=== PATIENT | female | born 1985 | race Caucasian/White ===

== ENCOUNTER 2017-11-14 08:47 | Emergency (ER) | payer OTHER ==
[2017-11-14] MEDS: ALBUTEROL 0.083% (NEB) 2.5 MG/3 ML AMP HHN (10:05)
[2017-11-14] MEDS: IPRATROPIUM (NEB) 0.5 MG/2.5 ML AMP HHN (10:05)
== END 2017-11-14 11:45 | disposition home or self-care (01) ==
LOC: FTE 08:47
DX: J20.9 Acute bronchitis, unspecified (principal); J45.901 Unspecified asthma with (acute) exacerbation
CPT/HCPCS: 71046; 94664; 99283-25

== ENCOUNTER 2018-01-06 11:45 | Emergency (ER) | payer OTHER | END 2018-01-06 14:35 | disposition home or self-care (01) | LOC: FTE 11:45 | DX: S62.655A Nondisplaced fracture of middle phalanx of left ring finger, initial encounter for closed fracture (principal); J45.909 Unspecified asthma, uncomplicated; W01.0XXA Fall on same level from slipping, tripping and stumbling without subsequent striking against object, initial encounter; Y92.9 Unspecified place or not applicable | CPT/HCPCS: 29130; 73140; 99283-25 ==

== ENCOUNTER 2018-01-10 08:12 | Inpatient (IN) | payer OTHER ==
[2018-01-10] MEDS: HYDROmorphONE 1 MG/5 ML IV SYRINGE IV (08:55)
[2018-01-10] MEDS: ONDANSETRON 4 MG INJ IV (08:55)
[2018-01-10] MEDS: LACTATED RINGER'S 1,000 ML IV (09:05)
[2018-01-10 09:12] LABS: ADD MAN DIFF? NO
[2018-01-10 09:14] LABS: ABNORMAL IP MESSAGE 1; BASOPHIL # 0.1 10^3/ul (0.0-0.1); BASOPHILS % 0.7 % (0.0-2.0); EOSINOPHILS % 14.3 % (0.0-7.0); HEMOGLOBIN 13.4 g/dl (12.0-16.0); LYMPHOCYTES # 2.8 10^3/ul (0.8-2.9); LYMPHOCYTES % 13.2 % (15.0-51.0); MEAN CORPUSCULAR HEMOGLOBIN 28.7 pg (29.0-33.0); MEAN CORPUSCULAR HGB CONC 32.7 g/dl (32.0-37.0); MEAN CORPUSCULAR VOLUME 87.8 fl (82.0-101.0); MONOCYTE # 1.4 10^3/ul (0.3-0.9); MONOCYTES % 6.6 % (0.0-11.0); NEUTROPHIL # 13.8 10^3/ul (1.6-7.5); NEUTROPHILS % 64.9 % (39.0-77.0); PLATELET COUNT 428 10^3/UL (140-415); RED BLOOD COUNT 4.67 10^6/ul (4.20-5.40); RED CELL DISTRIBUTION WIDTH 13.1 % (11.5-14.5)
[2018-01-10 09:14] LABS: WHITE BLOOD COUNT 21.2 10^3/ul (4.8-10.8)
[2018-01-10 09:15] LABS: ADD UMIC NO; UR ASCORBIC ACID NEGATIVE (NEGATIVE); UR BILIRUBIN (Dip) NEGATIVE (NEGATIVE); UR BLOOD (Dip) NEGATIVE (NEGATIVE); UR CLARITY CLEAR (CLEAR); UR COLOR YELLOW (YELLOW); UR GLUCOSE (Dip) NEGATIVE (NEGATIVE); UR KETONES (Dip) NEGATIVE (NEGATIVE); UR LEUKOCYTE ESTERASE (Dip) NEGATIVE Leu/ul (NEGATIVE); UR NITRITE (Dip) NEGATIVE (NEGATIVE); UR SPECIFIC GRAVITY (Dip) 1.013 (1.003-1.030); UR TOTAL PROTEIN (Dip) NEGATIVE (NEGATIVE); UR UROBILINOGEN (Dip) NEGATIVE (NEGATIVE)
[2018-01-10 09:18] LABS: POSITIVE DIFF @See below
[2018-01-10 09:35] LABS: ALANINE AMINOTRANSFERASE 29 IU/L (13-69); ALBUMIN 4.7 g/dl (3.3-4.9); ALBUMIN/GLOBULIN RATIO 1.34; ALKALINE PHOSPHATASE 86 IU/L (42-121); ANION GAP 17 (8-16); ASPARTATE AMINO TRANSFERASE 28 IU/L (15-46); BILIRUBIN,INDIRECT 0.3 mg/dl (0-1.1); BILIRUBIN,TOTAL 0.3 mg/dl (0.2-1.3); BLOOD UREA NITROGEN 10 mg/dl (7-20); CALCIUM 10.3 mg/dl (8.4-10.2); CARBON DIOXIDE 27 mmol/L (21-31); CHLORIDE 103 mmol/L (97-110); CREATININE 0.69 mg/dl (0.44-1.00); GLUCOSE 125 mg/dl (70-220); LIPASE 59 U/L (23-300); SODIUM 143 mmol/L (135-144); TOTAL PROTEIN 8.2 g/dl (6.1-8.1)
[2018-01-10 09:41] LABS: LACTIC ACID 2.5 mmol/L (0.5-2.0)
[2018-01-10] MEDS: IOHEXOL 300MG/ML 150 ML BTL ×2 (10:02→11:43)
[2018-01-10] MEDS: SOD CHLORIDE 0.9% 100 ML ×2 (10:02→12:50)
[2018-01-10] MEDS: PIPER-TAZO 3.375 GM IV (PMX) 100 ML IVPB ×3 (10:15→17:45)
[2018-01-10] MEDS: SOD CHLORIDE 0.9% 1,000 ML IV ×3 (10:15→19:23)
[2018-01-10] MEDS ORDERED: NACL 0.9% 3 ML SYG IV (11:30)
[2018-01-10] MEDS ORDERED: ACETAMINOPHEN 650 MG SUPP PR (11:30)
[2018-01-10] MEDS ORDERED: VANCOMYCIN IV PER PHARMACY XX (11:30)
[2018-01-10] MEDS ORDERED: ACETAMINOPHEN 325 MG TAB PO (11:30)
[2018-01-10] MEDS ORDERED: ONDANSETRON 4 MG INJ IV (11:30)
[2018-01-10] MEDS ORDERED: PIPER-TAZO 3.375 GM IV (PMX) 100 ML IVPB (12:00)
[2018-01-10 12:25] LABS: AMPHETAMINE/METHAMPHETAMINE Negative (NEGATIVE); BARBITURATES Negative (NEGATIVE); BENZODIAZEPINES Negative (NEGATIVE); CANNABINOIDS Positive (NEGATIVE); COCAINE Negative (NEGATIVE); OPIATES Negative (NEGATIVE)
[2018-01-10 12:33] LABS: LACTIC ACID 1.1 mmol/L (0.5-2.0)
[2018-01-10] MEDS: IOHEXOL 100 ML (12:50)
[2018-01-10] MEDS: ALBUTEROL HFA 8 GM INHALER INH ×3 (13:00→20:50)
[2018-01-10] MEDS: HYDROmorphONE 0.5 MG/0.5 ML SYG IV ×2 (15:19→22:32)
[2018-01-10] MEDS: PANTOPRAZOLE 40 MG INJ IV ×2 (15:22→17:49)
[2018-01-10] MEDS: VANCOMYCIN 1 GM 250 ML IVPB (15:23)
[2018-01-10] MEDS: VANCOMYCIN 750 MG in DEXTROSE 5% 150 ML IVPB (20:50)
[2018-01-11] MEDS: PIPER-TAZO 3.375 GM IV (PMX) 100 ML IVPB ×5 (00:12→23:31)
[2018-01-11] MEDS ORDERED: VANCOMYCIN 1 GM 250 ML IVPB (01:00)
[2018-01-11] MEDS: ALBUTEROL HFA 8 GM INHALER INH ×6 (01:00→20:57)
[2018-01-11] MEDS: VANCOMYCIN 750 MG in DEXTROSE 5% 150 ML IVPB ×3 (04:49→20:57)
[2018-01-11] MEDS: SOD CHLORIDE 0.9% 1,000 ML IV ×3 (04:49→18:02)
[2018-01-11 05:50] LABS: ADD MAN DIFF? NO
[2018-01-11 05:55] LABS: BASOPHIL # 0.1 10^3/ul (0.0-0.1); BASOPHILS % 0.7 % (0.0-2.0); EOSINOPHILS # 1.6 10^3/ul (0.0-0.5); EOSINOPHILS % 18.1 % (0.0-7.0); HEMATOCRIT 35.3 % (37.0-47.0); HEMOGLOBIN 11.4 g/dl (12.0-16.0); LYMPHOCYTES # 3.3 10^3/ul (0.8-2.9); LYMPHOCYTES % 36.3 % (15.0-51.0); MEAN CORPUSCULAR HGB CONC 32.3 g/dl (32.0-37.0); MEAN CORPUSCULAR VOLUME 89.8 fl (82.0-101.0); MEAN PLATELET VOLUME 10.2 fl (7.4-10.4); MONOCYTE # 0.7 10^3/ul (0.3-0.9); MONOCYTES % 8.1 % (0.0-11.0); NEUTROPHIL # 3.3 10^3/ul (1.6-7.5); NEUTROPHILS % 36.6 % (39.0-77.0); PLATELET COUNT 289 10^3/UL (140-415); RED BLOOD COUNT 3.93 10^6/ul (4.20-5.40); RED CELL DISTRIBUTION WIDTH 13.1 % (11.5-14.5)
[2018-01-11] MEDS ORDERED: PANTOPRAZOLE 40 MG INJ IV (06:00)
[2018-01-11 06:11] LABS: ALANINE AMINOTRANSFERASE 25 IU/L (13-69); ALBUMIN 3.3 g/dl (3.3-4.9); ALBUMIN/GLOBULIN RATIO 1.26; ALKALINE PHOSPHATASE 55 IU/L (42-121); ANION GAP 10 (8-16); ASPARTATE AMINO TRANSFERASE 17 IU/L (15-46); BILIRUBIN,INDIRECT 0.3 mg/dl (0-1.1); BILIRUBIN,TOTAL 0.3 mg/dl (0.2-1.3); BLOOD UREA NITROGEN 5 mg/dl (7-20); CALCIUM 8.4 mg/dl (8.4-10.2); CARBON DIOXIDE 26 mmol/L (21-31); CHLORIDE 111 mmol/L (97-110); CHOL/HDL RATIO 2.9 RATIO; CHOLESTEROL 122 mg/dl (100-200); CREATININE 0.73 mg/dl (0.44-1.00); GLUCOSE 96 mg/dl (70-220); HDL CHOLESTEROL 41 mg/dl (34-82); LDL CHOLESTEROL,CALCULATED 61 mg/dl; MAGNESIUM 1.8 mg/dl (1.7-2.5); PHOSPHORUS 3.9 mg/dl (2.5-4.9); POTASSIUM 3.7 mmol/L (3.5-5.1); SODIUM 143 mmol/L (135-144); TOTAL PROTEIN 5.9 g/dl (6.1-8.1); TRIGLYCERIDES 98 mg/dl (0-149)
[2018-01-11 06:22] LABS: HEMOGLOBIN A1C 5.4 % (0-5.9)
[2018-01-11] MEDS: PANTOPRAZOLE 40 MG INJ IV ×2 (06:44→17:41)
[2018-01-11 06:48] LABS: ALPHA FETOPROTEIN 1.95 IU/L (0.00-7.21)
[2018-01-11] MEDS: PROPOFOL 20 ML ×2 (16:29)
[2018-01-11] MEDS: HYDROmorphONE 0.5 MG/0.5 ML SYG IV ×2 (17:32→23:31)
[2018-01-12] MEDS: ALBUTEROL HFA 8 GM INHALER INH ×4 (01:00→13:00)
[2018-01-12] MEDS: SOD CHLORIDE 0.9% 1,000 ML IV ×2 (03:23→10:30)
[2018-01-12] MEDS: VANCOMYCIN 750 MG in DEXTROSE 5% 150 ML IVPB ×2 (04:35→13:00)
[2018-01-12] MEDS: PANTOPRAZOLE 40 MG INJ IV (06:23)
[2018-01-12] MEDS: PIPER-TAZO 3.375 GM IV (PMX) 100 ML IVPB ×2 (06:23→12:00)
== END 2018-01-12 13:55 | disposition home or self-care (01) | DRG 392 ==
LOC: FTE 08:12 → MS2 10:37
PROVIDERS: Internal Medicine
PROC: 0DBA8ZX Excision of Jejunum, Via Natural or Artificial Opening Endoscopic, Diagnostic (ICD-10-PCS; principal; 2018-01-11 15:30)
PROC: 0DB68ZX Excision of Stomach, Via Natural or Artificial Opening Endoscopic, Diagnostic (ICD-10-PCS; 2018-01-11 15:30)
DX: K21.9 Gastro-esophageal reflux disease without esophagitis (principal); G43.A0 Cyclical vomiting, in migraine, not intractable; F12.10 Cannabis abuse, uncomplicated; F10.10 Alcohol abuse, uncomplicated; J45.998 Other asthma
CPT/HCPCS: 36415; 71045; 74160; 74177; 76705; 80053; 80061; 80202; 80307; 81003; 82105; 83036; 83605; 83690; 83735; 84100; 84703; 85025; 85048; 87040; 87086; 88305; 88312; 88313; 96374; 96375; 99285-25

== ENCOUNTER 2018-02-18 11:48 | Emergency (ER) | payer OTHER ==
[2018-02-18] MEDS: HYDROCODONE/APAP (5/325) TAB PO (12:46)
== END 2018-02-18 14:41 | disposition home or self-care (01) ==
LOC: FTE 11:48
DX: S61.206A Unspecified open wound of right little finger without damage to nail, initial encounter (principal); J45.909 Unspecified asthma, uncomplicated; W25.XXXA Contact with sharp glass, initial encounter; Y92.9 Unspecified place or not applicable; Z87.891 Personal history of nicotine dependence
CPT/HCPCS: 73130; 73130-RT; 99283-25

== ENCOUNTER 2018-05-09 13:20 | Emergency (ER) | payer OTHER ==
[2018-05-09 14:54] LABS: ADD UMIC NO; UR ASCORBIC ACID NEGATIVE (NEGATIVE); UR BILIRUBIN (Dip) NEGATIVE (NEGATIVE); UR BLOOD (Dip) NEGATIVE (NEGATIVE); UR CLARITY CLEAR (CLEAR); UR COLOR STRAW (YELLOW); UR GLUCOSE (Dip) NEGATIVE (NEGATIVE); UR KETONES (Dip) NEGATIVE (NEGATIVE); UR LEUKOCYTE ESTERASE (Dip) NEGATIVE Leu/ul (NEGATIVE); UR NITRITE (Dip) NEGATIVE (NEGATIVE); UR SPECIFIC GRAVITY (Dip) 1.006 (1.003-1.030); UR TOTAL PROTEIN (Dip) NEGATIVE (NEGATIVE); UR UROBILINOGEN (Dip) NEGATIVE (NEGATIVE)
[2018-05-09 15:01] LABS: ADD MAN DIFF? NO
[2018-05-09 15:06] LABS: ABNORMAL IP MESSAGE 1; BASOPHIL # 0.1 10^3/ul (0.0-0.1); BASOPHILS % 0.8 % (0.0-2.0); EOSINOPHILS # 2.6 10^3/ul (0.0-0.5); HEMATOCRIT 40.5 % (37.0-47.0); HEMOGLOBIN 12.9 g/dl (12.0-16.0); LYMPHOCYTES # 2.9 10^3/ul (0.8-2.9); LYMPHOCYTES % 27.2 % (15.0-51.0); MEAN CORPUSCULAR HEMOGLOBIN 28.4 pg (29.0-33.0); MEAN CORPUSCULAR HGB CONC 31.9 g/dl (32.0-37.0); MEAN CORPUSCULAR VOLUME 89.2 fl (82.0-101.0); MEAN PLATELET VOLUME 10.3 fl (7.4-10.4); MONOCYTE # 0.8 10^3/ul (0.3-0.9); NEUTROPHIL # 4.3 10^3/ul (1.6-7.5); NEUTROPHILS % 40.7 % (39.0-77.0); PLATELET COUNT 338 10^3/UL (140-415); RED BLOOD COUNT 4.54 10^6/ul (4.20-5.40); RED CELL DISTRIBUTION WIDTH 12.7 % (11.5-14.5)
[2018-05-09 15:06] LABS: WHITE BLOOD COUNT 10.7 10^3/ul (4.8-10.8)
[2018-05-09 15:16] LABS: POSITIVE DIFF @See below
[2018-05-09 15:21] LABS: ALANINE AMINOTRANSFERASE 21 IU/L (13-69); ALBUMIN/GLOBULIN RATIO 1.25; ALKALINE PHOSPHATASE 76 IU/L (42-121); ANION GAP 15 (8-16); ASPARTATE AMINO TRANSFERASE 27 IU/L (15-46); BILIRUBIN,INDIRECT 0.3 mg/dl (0-1.1); BILIRUBIN,TOTAL 0.3 mg/dl (0.2-1.3); BLOOD UREA NITROGEN 13 mg/dl (7-20); CARBON DIOXIDE 30 mmol/L (21-31); CHLORIDE 103 mmol/L (97-110); CREATININE 0.68 mg/dl (0.44-1.00); GLUCOSE 87 mg/dl (70-220); LIPASE 66 U/L (23-300); POTASSIUM 3.5 mmol/L (3.5-5.1); SODIUM 144 mmol/L (135-144)
[2018-05-09 17:13] LABS: ANISOCYTOSIS 1+ (0-0); BASOPHIL #M 0.1 10^3/ul (0.0-0.0); BASOPHILS % (M) 1 % (0-2); EOSINOPHILS % (M) 26 % (0-7); LYMPHOCYTES #M 3.7 10^3/ul (0.8-2.9); LYMPHOCYTES % (M) 35 % (15-51); MICROCYTOSIS 1+ (0-0); MONOCYTE #M 0.5 10^3/ul (0.3-0.9); MONOCYTES % (M) 5 % (0-11); SEGMENTED NEUTROPHILS (M) % 33 % (39-77); SMUDGE%M 1 % (0-0)
== END 2018-05-09 15:39 | disposition home or self-care (01) ==
LOC: FTE 13:20
DX: D72.829 Elevated white blood cell count, unspecified (principal); J45.909 Unspecified asthma, uncomplicated; R30.0 Dysuria; Z00.00 Encounter for general adult medical examination without abnormal findings
CPT/HCPCS: 36415; 71045; 80053; 81003; 81025; 83690; 85025; 87086; 99284-25

== ENCOUNTER 2018-06-16 12:27 | Emergency (ER) | payer OTHER ==
[2018-06-16 13:21] LABS: URINE BLOOD (Dip) POC Negative (NEGATIVE); URINE GLUCOSE (Dip) POC Negative (NEGATIVE); URINE KETONES (Dip) POC Negative (NEGATIVE); URINE LEUKOCYTE EST (Dip) POC Negative (NEGATIVE); URINE NITRITE (Dip) POC Negative (NEGATIVE); URINE TOTAL PROTEIN POC 1+ (NEGATIVE)
[2018-06-16] MEDS: METOCLOPRAMIDE 10 MG INJ IV (13:28)
[2018-06-16] MEDS: DIPHENHYDRAMINE 50 MG INJ IV (13:28)
[2018-06-16] MEDS: KETOROLAC 30 MG INJ IV (13:29)
[2018-06-16] MEDS: SOD CHLORIDE 0.9% 1,000 ML IV (13:30)
== END 2018-06-16 14:31 | disposition home or self-care (01) ==
LOC: FTE 12:27
DX: R51 Headache (principal); J45.909 Unspecified asthma, uncomplicated
CPT/HCPCS: 36415; 81003; 81025; 96361; 96374; 96375; 99284-25